=== PATIENT | male | born 1975 | race Native Hawaiian/Other Pacific Islander ===

== ENCOUNTER 2019-06-11 08:15 | Emergency (ER) | payer OTHER ==
[~2019-06-11] VITALS: Ht 172.7 cm; Wt 88.5 kg
[2019-06-11 08:26] VITALS: TEMP 97.7
[2019-06-11 09:40] LABS: PLATELET COUNT 222 K/uL (142-355)
[2019-06-11 10:30] VITALS: BP 118/76
== END 2019-06-11 10:45 | disposition home or self-care (01) ==
LOC: ED 08:15
PROVIDERS: Family Medicine
DX: N20.0 Calculus of kidney (principal)
CPT/HCPCS: 80053; 85027; 96372; 99283; J1885

== ENCOUNTER 2020-05-23 10:28 | Emergency (ER) | payer OTHER ==
[~2020-05-23] VITALS: Ht 172.7 cm; Wt 88.5 kg
[2020-05-23 10:40] VITALS: TEMP 99.2
[2020-05-23 12:20] VITALS: BP 142/92
== END 2020-05-23 12:20 | disposition home or self-care (01) ==
LOC: ED 10:28
DX: S23.3XXA Sprain of ligaments of thoracic spine, initial encounter (principal); V84.0XXA Driver of special agricultural vehicle injured in traffic accident, initial encounter; Y92.89 Other specified places as the place of occurrence of the external cause
CPT/HCPCS: 96372; 99283; J1885